=== PATIENT | male | born 1995 | race African-American/Black ===

== ENCOUNTER 2016-06-29 04:01 | Emergency (ER) | payer MEDICAID ==
[~2016-06-29] VITALS: Ht 188 cm; Wt 75.0 kg
[~2016-06-29 04:01] MED LIST: DICL75 PO
[2016-06-29 04:06] VITALS: BP 131/84; PULSE 78; RESP 18; TEMP 98; O2SAT 100
[2016-06-29 04:19] VITALS: BP 123/81; PULSE 85; RESP 20; TEMP 98; O2SAT 97
--- NOTE | 2016-06-29 04:19 | PD ---
HPI Chief Complaint: Chest Pain Time Seen by Provider: 04:16 Travel History International Travel<30 days: No Contact w/Intl Traveler<30days: No Traveled to known affect area: No History of Present Illness HPI 21-year-old male here for evaluation of chest pain. The patient reports intermittent sharp substernal chest pains that occur for several seconds since yesterday. No modifying factors. No dyspnea. No paresthesias or motor deficits. No fevers, chills, cough, recent illness. No known history of cardiopulmonary disease. He admits to taking the drug Sayda yesterday. No other drugs or alcohol. PFSH Past Medical History Autoimmune Disease: No Blood Disorders: No Anxiety: No Depression: No Cardiovascular Problems: No Developmental Delay: No Diminished Hearing: No Musculoskeletal: Yes (RIGHT KNEE FX) Neurologic: No Psychiatric: No Respiratory: No Immunizations Current: Yes Sickle Cell Disease: No Past Surgical History Other Surgery: Yes Social History Alcohol Use: Yes (OCCASIONALLY) Tobacco Use: No Substance Use: Yes (THC) Allergies-Medications (Allergen,Severity, Reaction): Coded Allergies: No Known Allergies (Verified , 12/28/15) Reported Meds & Prescriptions Reported Meds & Active Scripts Active No Active Prescriptions or Reported Medications Review of Systems Except as stated in HPI: all other systems reviewed are Neg Physical Exam Narrative GENERAL: Well-developed, well-nourished, comfortable, no acute distress. SKIN: Warm and dry. No rash. HEAD: Atraumatic. Normocephalic. EYES: Pupils equal and round. No scleral icterus. No injection or drainage. ENT: No nasal bleeding or discharge. Mucous membranes pink and moist. NECK: Trachea midline. No JVD. CARDIOVASCULAR: Regular rate and rhythm. Distal pulses brisk and equal bilaterally. RESPIRATORY: No accessory muscle use. Clear to auscultation. Breath sounds equal bilaterally. GASTROINTESTINAL: Abdomen soft, non-tender, nondistended. MUSCULOSKELETAL: No obvious deformities. No clubbing. No cyanosis. No edema. NEUROLOGICAL: Awake and alert. No obvious cranial nerve deficits. Motor grossly within normal limits. Normal speech. PSYCHIATRIC: Appropriate mood and affect; insight and judgment normal. Data Data Last Documented VS Vital Signs Date Time Temp Pulse Resp B/P Pulse Ox O2 Delivery O2 Flow Rate FiO2 06/29/16 05:07 73 16 124/66 95 Room Air 06/29/16 04:19 98.0 Orders Electrocardiogram (06/29/16 04:16) Basic Metabolic Panel (Bmp) (06/29/16 04:16) Ckmb (Isoenzyme) Profile (06/29/16 04:16) Complete Blood Count With Diff (06/29/16 04:16) Magnesium (Mg) (06/29/16 04:16) Prothrombin Time / Inr (Pt) (06/29/16 04:16) Act Partial Throm Time (Ptt) (06/29/16 04:16) Troponin I (06/29/16 04:16) Chest, Single Ap (06/29/16 04:16) Ecg Monitoring (06/29/16 04:16) Iv Access Insert/Monitor (06/29/16 04:16) Oximetry (06/29/16 04:16) Sodium Chloride 0.9% Flush (Ns Flush) (06/29/16 04:30) CKMB (06/29/16 04:25) CKMB% (06/29/16 04:25) Labs Laboratory Tests Test 06/29/16 04:25 White Blood Count 7.0 TH/MM3 Red Blood Count 4.41 MIL/MM3 Hemoglobin 13.4 GM/DL Hematocrit 39.9 % Mean Corpuscular Volume 90.5 FL Mean Corpuscular Hemoglobin 30.4 PG Mean Corpuscular Hemoglobin 33.7 % Concent Red Cell Distribution Width 13.4 % Platelet Count 210 TH/MM3 Mean Platelet Volume 9.4 FL Neutrophils (%) (Auto) 57.0 % Lymphocytes (%) (Auto) 32.6 % Monocytes (%) (Auto) 9.6 % Eosinophils (%) (Auto) 0.4 % Basophils (%) (Auto) 0.4 % Neutrophils # (Auto) 4.0 TH/MM3 Lymphocytes # (Auto) 2.3 TH/MM3 Monocytes # (Auto) 0.7 TH/MM3 Eosinophils # (Auto) 0.0 TH/MM3 Basophils # (Auto) 0.0 TH/MM3 CBC Comment DIFF FINAL Differential Comment Prothrombin Time 11.2 SEC Prothromb Time International 1.0 RATIO Ratio Activated Partial 33.2 SEC Thromboplast Time Sodium Level 135 MEQ/L Potassium Level 3.9 MEQ/L Chloride Level 100 MEQ/L Carbon Dioxide Level 28.1 MEQ/L Anion Gap 7 MEQ/L Blood Urea Nitrogen 14 MG/DL Creatinine 1.09 MG/DL Estimat Glomerular Filtration 105 ML/MIN Rate Random Glucose 83 MG/DL Calcium Level 9.0 MG/DL Magnesium Level 2.3 MG/DL Total Creatine Kinase 444 U/L Creatine Kinase MB 0.6 NG/ML Creatine Kinase MB % 0.1 % Troponin I LESS THAN 0.02 NG/ML MDM Medical Decision Making Medical Screen Exam Complete: Yes Emergency Medical Condition: Yes Interpretation(s) EKG: Sinus, rate 79, normal axis, normal intervals, early repolarization, no signs of ischemia. Differential Diagnosis ACS, pneumothorax, pericarditis, PE unlikely (PERC negative), pneumonia, musculoskeletal pain, cocaine chest pain Narrative Course Vital signs are within normal limits. CBC is unremarkable. BMP is unremarkable. Cardiac enzymes are negative. Total CK is 444. Chest x-ray shows no acute disease. Upon reassessment the patient is sleeping comfortably. He has not had chest pain while in the emergency department. I do not believe his pain is cardiac in nature. I believe he is stable for discharge home with outpatient follow-up with a primary care physician this week. He was informed on when to return to the emergency department. He verbalizes understanding and agreement with plan. Diagnosis Primary Impression: Atypical chest pain Referrals: Primary Care Physician 3 days Additional Instructions: Follow-up with a primary care physician this week. Return to the emergency room if worsening symptoms or any other concerns. Scripts No Active Prescriptions or Reported Meds Disposition: 01 DISCHARGE HOME Condition: Stable Hebert Owens MD Jun 29, 2016 04:19
[2016-06-29] MEDS ORDERED: SODIUM CHLORIDE 0.9% FLUSH 5 ML FLUSH IVF PRN (04:30)
[2016-06-29 04:41] LABS: BASOPHIL % 0.4 % (0.0-2.0); EOSINOPHIL % 0.4 % (0.0-4.0); HEMATOCRIT 39.9 % (39.0-51.0); HEMO FLAGS DIFF FINAL; LYMPH % 32.6 % (9.0-44.0); LYMPHOCYTE # 2.3 TH/MM3 (1.0-4.8); MEAN CELL VOLUME 90.5 FL (80.0-100.0); MEAN CORPUSCULAR HEMOGLOBIN 30.4 PG (27.0-34.0); MEAN CORPUSCULAR HGB CONC 33.7 % (32.0-36.0); MONO % 9.6 % (0.0-8.0); PLATELET COUNT 210 TH/MM3 (150-450); RED BLOOD COUNT 4.41 MIL/MM3 (4.50-5.90); RED CELL DISTRIBUTION WIDTH 13.4 % (11.6-17.2)
--- NOTE | 2016-06-29 04:44 | RADRPT ---
EXAM DATE/TIME: 06/29/2016 04:18 [facility] COMPARISON: No previous studies available for comparison. INDICATIONS : Shortness of breath. MEDICAL HISTORY : None. SURGICAL HISTORY : None. ENCOUNTER: Initial ACUITY: 1 day PAIN SCORE: 0/10 LOCATION: Bilateral chest FINDINGS: The lungs are clear without infiltrate, nodule, or mass. There is no appreciable pleural effusion fo r technique. Heart and mediastinum are unremarkable. CONCLUSION: No acute cardiopulmonary disease. Chino Petty MD on June 29, 2016 at 4:42 Board Certified Radiologist. This report was verified electronically.
[2016-06-29 04:50] LABS: APTT (PATIENT) 33.2 SEC (24.3-30.1); PROTHROMBIN TIME - PATIENT 11.2 SEC (9.8-11.6)
[2016-06-29 05:05] LABS: ANION GAP 7 MEQ/L (5-15); BICARBONATE 28.1 MEQ/L (21.0-32.0); BLOOD UREA NITROGEN 14 MG/DL (7-18); CHLORIDE 100 MEQ/L (98-107); CREATINE KINASE 444 U/L (39-308); GLOMERULAR FILTRATION RATE 105 ML/MIN (>89); MAGNESIUM 2.3 MG/DL (1.5-2.5); SODIUM (NA) 135 MEQ/L (136-145)
[2016-06-29 05:06] LABS: POTASSIUM 3.9 MEQ/L (3.5-5.1)
[2016-06-29 05:07] VITALS: BP 124/66; PULSE 73; RESP 16; O2SAT 95
[2016-06-29 05:19] LABS: CKMB 0.6 NG/ML (0.5-3.6)
--- NOTE | 2016-06-29 22:42 | EKG ---
Date Performed: 06/29/2016 Time Performed: 03:26:17 PTAGE: 21 years EKG: Sinus rhythm ST ELEVATION, PROBABLY EARLY REPOLARIZATION BORDERLINE ECG INTERPRETATION BASED ON A DEFAULT AGE OF 41 YEARS NO PREVIOUS TRACING DOCTOR: Naomi Hurley Interpretating Date/Time 06/29/2016 22:40:01
== END 2016-06-29 06:45 | disposition home or self-care (01) ==
LOC: NEPE 04:01
DX: R07.89 Other chest pain (principal); R06.02 Shortness of breath
CPT/HCPCS: 71010; 80048; 82550; 82552; 83735; 84484; 85025; 85610; 85730; 93005